=== PATIENT | male | born 1995 | race African-American/Black ===

== ENCOUNTER 2019-08-11 23:33 | Emergency (ER) | payer OTHER ==
[~2019-08-11] VITALS: Ht 175.3 cm; Wt 90.7 kg
[2019-08-11] MEDS ORDERED: GENVOYA TABLET1 EACH PO (23:54)
[2019-08-12 02:01] VITALS: BP 136/70
== END 2019-08-12 02:03 | disposition home or self-care (01) ==
LOC: ER 23:33
DX: R21 Rash and other nonspecific skin eruption (principal)